=== PATIENT | female | born 1935 | race Caucasian/White ===

== ENCOUNTER 2023-06-05 13:35 | Emergency (ER) | payer MEDICARE, OTHER, SELFPAY ==
[2023-06-05 13:37] VITALS: PULSE 75; RESP 17; TEMP 37; O2SAT 95; BMI 32.9
--- NOTE | 2023-06-05 13:56 | PC.NURSE ---
pt initial bp pt blood pressure attempted x3 on both arms. bp did not take and pt r/f another at this time.
--- NOTE | 2023-06-05 14:06 | PC.PHAR ---
PT STATES SHE TAKES CARE OF HER OWN MEDICATIONS-PT STATES SHE TAKES AMLODIPINE 2.5MG QAM RX FILLED FOR 5MG DAILY04/08/23 90D/S PT STATES ONLY TAKES 2.5MG DAILY BECAUSE 5MG DAILY BRINGS HER BP DOWN TO LOW-PT STATES SHE NO LONGER TAKES PRAVASTATIN 10MG STATES NOT TAKEN FOR MONTHS EXT SHOWS LAST FILLED 01/11/23 90D/S-
[2023-06-05 14:19] VITALS: BP 182/96
--- NOTE | 2023-06-05 14:20 | XR_ITS ---
WS: [id number] EXAMINATION: XR ankle RT min 3V* [id number] ORDER DATE: 06/05/2023 2:21 PM COMPARISON: None HISTORY: pain FINDINGS: There is generalized joint space narrowing. Periarticular osteophytes and generalized degenerative c hanges noted. There is no evidence of acute fracture, dislocation, or joint effusion. Ligamentous and /or intra-articular cartilaginous injury cannot be excluded by radiography. There is an 8 mm plantar calcaneal spur. IMPRESSION: ARTICULAR AND PERIARTICULAR DEGENERATIVE CHANGES OF OSTEOARTHRITIS. IF THERE IS ANY CLINICAL SUSPICIO N OR PROLONGED SYMPTOMS SUGGESTIVE OF LIGAMENTOUS OR CARTILAGINOUS INJURY OTHER IMAGING MAY BE WARRLANNY ALY.
--- NOTE | 2023-06-05 14:20 | USCV_ITS ---
Martita Walton Age: 87 Gender: F : 1935 Exam Date: 06/05/2023 15:12 Ordering Phys: Lainey Collins Technologist: DELIA [place] [facility] [place] Pain HISTORY: Lower extremity pain. History of deep venous thrombosis. PROCEDURES: Venous duplex imaging was performed in only the right lower extremity. The following venous structures were evaluated: common femoral vein, profunda vein, proximal portion of the greater saphenous vein, superficial femoral vein, and the popliteal vein. In addition, the posterior tibial and peroneal trunk were evaluated. Serial compression, augmentation maneuvers, and spectral Doppler flow evaluation were performed. FINDINGS: No evidence of DVT seen in any vessel visualized at this time. CONCLUSIONS No evidence of acute right lower extremity DVT. Dustin Parsons MD (Electronically Signed) Final Date: 05 June 2023 16:43 S
--- NOTE | 2023-06-05 14:42 | ED_ITS ---
HPI - Extremity Problem General: Chief complaint: Extremity Problem,Nontraumatic Stated complaint: right foot/leg pain Time Seen by Provider: 06/05/23 13:38 Source: patient and family Mode of arrival: wheelchair Limitations: no limitations History of Present Illness: Patient is a very nice 87-year-old female presents to ED today along with her significant other for concerns of right ankle pain. She states pain has been bothering her over the past 2 weeks or so. She states pain seems to be worse with weightbearing. She has not noticed any pain to the remainder of the extremity. She does state a few weeks ago she had pain to the right hip but states her hip often times will come out of place has to be readjusted by a chiropractor. She states following this recent manipulation, her hip pain improved. She has not noticed any color or temperature changes to the lower extremity. She has not noticed swelling. She does have a history of DVT and currently on warfarin. Last INR check was last Saturday and was 2.6. Has not had any injury or trauma to the ankle. MD Complaint: joint pain Onset (ago): week(s) Pain Consistency: constant Location: right and lower extremity Radiation: none Relieving factors: immobilization Exacerbating factors: weight bearing and walking Associated symptoms: Reports no associated symptoms; Deny chest pain, fever(s) or rash Context: history of DVT Review of Systems Const: Denies: fever(s), chills, body aches, fatigue or malaise Card: Denies: chest pain Resp: Denies: dyspnea GI: Denies: abdominal pain : Denies: flank pain, dysuria or hematuria Musc: Reports: joint pain (R ankle, R hip); Denies: neck pain, back pain, extremity pain, extremity swelling, joint swelling , joint redness, joint warmth, joint stiffness, limited range of motion, muscle cramps or muscle weakness Skin/Breast: Denies: rash Neuro: Denies: headache(s), numbness in extremities, weakness in extremities or sensory changes Physical Exam Const: COMMON NORMALS: no acute distress, patient oriented x3, no limitations, alert and well nourished GENERAL APPEARANCE: cooperative ORIENTATION/CONSCIOUSNESS: Yes awake, Yes oriented to person, Yes oriented to place and Yes oriented to time HENMT: COMMON NORMALS: normocephalic and atraumatic HEAD & SCALP: normal to inspection, normocephalic and atraumatic Resp: COMMON NORMALS: normal respiratory effort and clear to auscultation bilaterally AUSCULTATION: clear to auscultation bilaterally Cardio: COMMON NORMALS: regular rate and regular rhythm RATE: regular rate RHYTHM: regular rhythm Back/Pelvis: COMMON NORMALS: thoracic and lumbar spine normal to inspection, no thoracic nor lumbar tenderness and thoraco-lumbar ROM normal Extremity: COMMON NORMALS: full ROM, capillary refill normal, no joint enlargement and no calf tenderness NARRATIVE EXTREMITY EXAM: mild bilateral symmetrical non-pitting edema; bilateral LE varicosities GENERAL: Yes normal exam except as noted RIGHT LOWER EXTREMITY: Yes hip joint (full ROM reports no pain at this time) Right hip: Yes palpation (normal), Yes ROM (normal) and Yes neurovascular exam (normal) and Yes foot & digits (TTP anterior/lateral ankle joint line; no swelling noted) Right ankle: Yes palpation (anteriolateral ankle), Yes ROM (normal ROM) and Yes neurovascular exam (normal; DP/PT pulses normal) OTHER: sensation normal; bilateral brisk cap refill; no coolness/pallor or redness/warmth noted Neuro: COMMON NORMALS: patient oriented x3, moves all extremities, no focal motor deficits and no sensory deficits noted SENSORIUM/ORIENTATION: Yes alert, Yes oriented to person, Yes oriented to place and Yes oriented to time Skin: COMMON NORMALS: no rashes or lesions noted GENERAL SKIN EXAM: no rashes or lesions noted TRAUMA: no lacerations or abrasions Course Vital Signs: Vital signs: Vital Signs Temperature 98.6 F 06/05/23 13:37 Pulse Rate 76 06/05/23 14:46 Respiratory Rate 16 06/05/23 14:46 Blood Pressure 162/89 06/05/23 14:46 Pulse Oximetry 92 06/05/23 14:46 Oxygen Delivery Me thod Room Air 06/05/23 14:46 MDM - Extremity (Nontraumatic) Medical Decision Making Patient here for right ankle pain. There is no evidence for joint infection. She has easily palpable DP/PT pulses. Ultrasound today is negative for DVT. On her x-ray she does have significant degenerative changes associated with osteoarthritis. This most likely is the reason for her discomfort. She does have known chronic venous reflux disease. Certainly this can cause some lower extremity swelling/pooling. She admittedly is not very good about wearing her compression stockings. I recommend she start doing this. She can take OTC Aleve and Tylenol for her ankle discomfort. She states she will follow-up with PCP Dr. Vogel for further follow-up. All radiology interpretation(s) finalized by discharge Discharge Plan Discharge Patient Disposition: Home Clinical Impression: Right ankle pain Qualifiers: Chronicity: acute Qualified Code(s): M25.571 - Pain in right ankle and joints of right foot Condition: Stable Prescriptions: No Action multivitamin Tablet 1 tab PO QPM amlodipine 5 mg tablet 2.5 mg PO QAM lisinopril 10 mg tablet 10 mg PO BEDTIME warfarin 2 mg tablet See Rx Instructions .ROUTE .COMPLEX Rx Instructions: TAKE TWO TABLETS (4MG)BY MOUTH EVERY DAY IN THE EVENING EXCEPT SATURDAY TAKE ONE TABLET (2MG) ON SATURDAY Discharge Orders: Discharge ED (Routine); Ordered 06/05/23 Ordered By: Lainey Collins Referrals: Margarito Vogel MD [Primary Care Provider] - Activity Restrictions/Additional Instructions: As we discussed I believe your right ankle pain is secondary to degenerative changes/osteoarthritis. Your ultrasound here was negative for blood clot. As we discussed I would like you to start taking some Aleve and Tylenol daily for your discomfort. You do have known venous reflux disease which can cause some lower leg pain. I want you to start wearing your compression stockings. Please follow-up with your primary care provider next week for reevaluation. Coding Level of Care Code ED [employer] for Stephen Alexander
[2023-06-05 14:46] VITALS: BP 162/89; PULSE 76; RESP 16; O2SAT 92
[2023-06-05 15:56] VITALS: BP 162/89; PULSE 76; RESP 16; O2SAT 92
== END 2023-06-05 16:13 | disposition home or self-care (01) ==
PROVIDERS: Emergency Provider Physician Assistant; PCP Family Medicine
DX: M25.571 Pain in right ankle and joints of right foot (principal); Z79.01 Long term (current) use of anticoagulants; M79.604 Pain in right leg
CPT/HCPCS: 73610; 93971; 99284

== ENCOUNTER 2023-06-10 14:23 | Outpatient (CLI) | payer MEDICARE, OTHER, SELFPAY ==
--- NOTE | 2023-06-10 14:32 | XRR_ITS ---
PROCEDURE INFORMATION: Exam: XR Right Knee Exam date and time: 06/10/2023 2:51 PM Age: 87 years old Clinical indication: Pain; Knee; Right; Additional info: R knee pain TECHNIQUE: Imaging protocol: Radiologic exam of the right knee. Views: 3 views. COMPARISON: CR XR ankle RT min 3V* [id number] 06/05/2023 2:25 PM FINDINGS: Bones/joints: Moderate to severe patellofemoral compartment primary osteoarthritis. Mild medial knee compartment primary osteoarthritis. Soft tissues: Normal. XR/XR knee RT 3V* [id number] IMPRESSION: 1. Moderate to severe patellofemoral compartment primary osteoarthritis. 2. Mild medial knee compartment primary osteoarthritis.
== END 2023-06-10 14:24 | disposition home or self-care (01) ==
LOC: RAD 14:23
PROVIDERS: PCP Family Medicine; Visit Provider Family Medicine
DX: M17.11 Unilateral primary osteoarthritis, right knee (principal)
CPT/HCPCS: 73562

== ENCOUNTER → 2023-09-30 10:39 | Outpatient (BNVA) | payer MEDICARE, OTHER, SELFPAY | PROVIDERS: PCP Family Medicine; Referring Provider Family Medicine; Visit Provider Specialist | DX: R42 Dizziness and giddiness (principal) | CPT/HCPCS: 99204 ==

== ENCOUNTER 2023-11-22 18:27 | Emergency (ER) | payer MEDICARE, OTHER, SELFPAY ==
[2023-11-22 18:42] VITALS: BP 256/98; PULSE 83; RESP 18; TEMP 36.6; O2SAT 97
[2023-11-22 21:38] LABS: Basophils % 0.6 %; Eosinophils # 0.1 10^3/uL (0.0-0.8); Eosinophils % 1.8 %; Hematocrit 42.4 % (36-47); Lymphocytes # 1.7 10^3/uL (0.8-4.8); Lymphocytes % 23.4 %; Mean Corpuscular HGB Conc 32.3 g/dL (30-55); Mean Corpuscular Hemoglobin 31.7 pg (27-33); Mean Corpuscular Volume 98.1 fl (85-98); Mean Platelet Volume 9.2 fL (7.4-10.4); Monocytes # 0.5 10^3/uL (0.2-0.9); Monocytes % 6.6 %; Neutrophils # 4.89 10^3/uL (1.8-7.7); Neutrophils % 67.3 %; Nucleated Red Blood Cells % 0 %; Platelet Count 163 10^3/cmm (157-399); Red Blood Count 4.32 10^6/uL (3.85-5.65); Red Cell Distribution Width 13.3 % (12.1-15.1); White Blood Count 7.26 10^3/uL (3.29-11.43)
[2023-11-22 21:58] LABS: Alanine Aminotransferase 10 U/L (0-33); Albumin Level 3.8 g/dL (3.5-5.2); Alkaline Phosphatase 97 U/L (35-105); Aspartate Amino Transferase 15 U/L (0-32); Blood Urea Nitrogen 19 mg/dL (8-23); Calcium 9.8 mg/dL (8.5-10.5); Carbon Dioxide 25 mmol/L (22-29); Chloride 108 mmol/L (98-107); Creatinine Clr Calc Pharmacy 32.2689; Glucose 117 mg/dL (65-115); Osmolality Calculated 299 mOsm/kg (285-295); Sodium 143 mmol/L (136-145); Total Bilirubin 0.3 mg/dL (0.15-1.2); Total Protein 6.8 g/dL (6.6-8.7)
[2023-11-22 22:42] VITALS: BP 221/85; PULSE 66; O2SAT 94
--- NOTE | 2023-11-22 22:47 | ED_ITS ---
Documented by User: JEANINE Bradley 11/23/23 00:37 HPI - Female Genitourinary 2 General: Chief complaint: Urogenital-Female Stated complaint: incontinence believes uti and pain Time Seen by Provider: 11/22/23 22:30 Source: patient Mode of arrival: ambulatory Limitations: no limitations History of Present Illness: Patient is an 88-year-old female presents to the emergency department complaining of urinary incontinence onset 2 days. Patient also notes associated burning, increased frequency, and some suprapubic pain. She denies any back pain or blood in her urine. She has never had issues with incontinence, as she states when she stands up urine gushes down her leg. She has history of UTIs and states that her other symptoms feel similar. She denies any fever, breathing difficulties, chest pain, or any other symptoms. Patient's blood pressure notably elevated in triage as she states she has not taken her blood pressure medication today. For this, she denies any headaches, visual changes, or other concerning symptoms. Associated symptoms: Deny abdominal pain, headache(s) or nausea Review of Systems 2 General: Reports: 10 or more systems reviewed and unremarkable except in HPI and below Const: Denies: fever(s), chills or fatigue Eyes: Denies: change in vision ENMT: Denies: throat pain, ear or mastoid pain or nasal discharge Card: Denies: chest pain, palpitations, swelling of feet/ankles or lightheadedness Resp: Denies: dyspnea, productive cough or wheezing GI: Denies: abdominal pain, nausea, vomiting, diarrhea or constipation : Reports: dysuria, urinary frequency, urinary incontinence and pelvic pain; Denies: flank pain or difficulty voiding Musc: Denies: neck pain, back pain or joint pain Skin/Breast: Denies: rash Neuro: Denies: headache(s), numbness in extremities or weakness in extremities Physical Exam 2 Const: COMMON NORMALS: no acute distress, patient oriented x3 and no limitations GENERAL APPEARANCE: cooperative, comfortable and well developed ORIENTATION/CONSCIOUSNESS: Yes awake, Yes oriented to person, Yes oriented to place and Yes oriented to time HENMT: COMMON NORMALS: normocephalic, atraumatic and hearing grossly normal bilaterally HEAD & SCALP: normocephalic and atraumatic Eye: COMMON NORMALS: Equal, round and reactive pupils present, EOMs intact bilaterally and conjunctivae normal CONJUNCTIVA: Yes conjunctivae normal P UPIL: Yes Equal, round and reactive pupils present Neck/C-Spine: COMMON NORMALS: full ROM, supple and no JVD Resp: COMMON NORMALS: normal respiratory effort, No retractions, No use of accessory muscles and clear to auscultation bilaterally AUSCULTATION: clear to auscultation bilaterally Cardio: COMMON NORMALS: no JVD, regular rate, regular rhythm, No clicks present (Cardio), No murmurs present (Cardio) and No rub (Cardio) RATE: r egular rate RHYTHM: regular rhythm GI: COMMON NORMALS: Normal to inspection, nondistended, normoactive bowel sounds present, Soft to palpation and non-tender AUSCULTATION: Yes normoactive bowel sounds PALPATION: Yes Soft to palpation RECTAL EXAM: d eferred : COMMON NORMALS: Yes no CVA tenderness BLADDER/KIDNEY EXAM: Yes no CVA tenderness Back/Pelvis: COMMON NORMALS: no CVA tenderness, thoracic and lumbar spine normal to inspection, no thoracic nor lumbar tenderness and thoraco-lumbar ROM normal Extremity: COMMON NORMALS: normal to inspection, full ROM and capillary refill normal Neuro: COMMON NORMALS: patient oriented x3, moves all extremities, no focal motor deficits and no sensory deficits noted SENSORIUM/ORIENTATION: Yes oriented to person, Yes oriented to place and Yes oriented to time Psych: COMMON NORMALS: mental status grossly normal and Normal thought process present THOUGHT PROCESS: Normal thought process present Skin: COMMON NORMALS: no rashes or lesions noted GENERAL SKIN EXAM: no rashes or lesions noted Course 2 Vital Signs: Vital signs: Vital Signs Temperature 97.9 F 11/22/23 18:42 Pulse Rate 77 11/23/23 01:08 Respiratory Rate 18 11/22/23 23:53 Blood Pressure 126/63 11/23/23 01:08 Pulse Oximetry 98 11/23/23 01:08 Oxygen Delivery Me thod Room Air 11/22/23 22:42 MDM - Female Medical Decision Making Patient was seen and evaluated in the emergency department today due to 2 days of urinary tract infection symptoms. Patient's primary complaint is the incontinence as she states that every time she stands up she leaks urine. On arrival patient's blood pressure was significantly elevated, as she states she had not taken her prescribed lisinopril yet. I treated this initially with IV hydralazine as well as clonidine, and prior to discharge patient's blood pressure was 106/56. On examination patient was exhibiting some moderate tenderness to palpation of the pelvic region. UA showed evidence of acute urinary tract infection. Due to the continuation of her pain out of proportion, I ordered a CT that showed cystitis and right ureteritis with mild hydronephrosis. There were also other nonspecific findings I instructed the patient to follow-up with her primary care to discuss. I will treat the patient with a dose of Macrobid prior to discharge, and send a prescription to her pharmacy. Instructed her to drink plenty of fluids and return precautions are given. Patient agrees with discharge home. Lab Data I reviewed the patient's lab results. 11/22/23 21:11/22/23: Radiology Impressions Abdomen/Pelvis CT 11/22/23 23:19 IMPRESSION: 1. Cystitis and right ureteritis with mild right hydronephrosis. No urinary tract calculi. 2. There is irregular soft tissue thickening/enhancement involving the urethra, which is concerning for malignancy. COMMENTS: Consistent with the [employer]'s Incidental Findings Committee white paper (J Am Lori Radiol 2018): Any incidental renal lesion less than 1 cm or classified as too small to characterize, or any incidental cystic renal lesion characterized as simple-appearing, is likely benign. No follow-up imaging is recommended for these lesions per consensus recommendations based on imaging criteria. Laboratory Results WBC 7.26 10^3/uL (3.29-11.43) 11/22/23: RBC 4.32 10^6/uL (3.85-5.65) 11/22/23: Hgb 13.70 g/dL (11.27-16.99) 11/22/23: Hct 42.4 % (36-47) 11/22/23: MCV 98.1 fl (85-98) H 11/22/23: MCH 31.7 pg (27-33) 11/22/23: MCHC 32.3 g/dL (30-55) 11/22/23: RDW 13.3 % (12.1-15.1) 11/22/23: Plt Count 163 10^3/cmm (157-399) 11/22/23: MPV 9.2 fL (7.4-10.4) 11/22/23: Neut % (Auto) 67.3 % 11/22/23: Lymph % (Auto) 23.4 % 11/22/23: Mcleod % (Auto) 6.6 % 11/22/23: Eos % (Auto) 1.8 % 11/22/23: Baso % (Auto) 0.6 % 11/22/23: Neut # (Auto) 4.89 10^3/uL (1.8-7.7) 11/22/23: Lymph # (Auto) 1.7 10^3/uL (0.8-4.8) 11/22/23: Mcleod # (Auto) 0.5 10^3/uL (0.2-0.9) 11/22/23: Eos # (Auto) 0.1 10^3/uL (0.0-0.8) 11/22/23: Baso # (Auto) 0.0 10^3/uL (0.0-0.1) 11/22/23: Nucleated RBC % (auto) 0 % 11/22/23 Nucleated RBCs # 0.0 /100WBC 11/22/23: Sodium 143 mmol/L (136-145) 11/22/23: Potassium 4.0 mmol/L (3.5-5.1) 11/22/23: Chloride 108 mmol/L (98-107) H 11/22/23: Carbon Dioxide 25 mmol/L (22-29) 11/22/23: Anion Gap 14.0 (5-19) 11/22/23: BUN 19 mg/dL (8-23) 11/22/23: Creatinine 1.3 mg/dL (0.5-0.9) H 11/22/23 21: GFR Calculation Not Reportable 11/22/23: Glucose 117 mg/dL (65-115) H 11/22/23: Calculated Osmolality 299 mOsm/kg (285-295) H 11/22/23:29 Calcium 9.8 mg/dL (8.5-10.5) 11/22/23 21: Total Bilirubin 0.3 mg/dL (0.15-1.2) 11/22/23 21: AST 15 U/L (0-32) 11/22/23 21: ALT 10 U/L (0-33) 11/22/23 21: Alkaline Phosphatase 97 U/L (35-105) 11/22/23 21: Total Protein 6.8 g/dL (6.6-8.7) 11/22/23 21: Albumin 3.8 g/dL (3.5-5.2) 11/22/23: Globulin 3.0 g/dL (1.3-4.6) 11/22/23: Urine Color Yellow (Yellow) 11/22/23 22:34 Urine Appearance Hazy (CLEAR) A 11/22/23 22:34 Urine pH 6 (5-7) 11/22/23 22:34 Ur Specific [place] 1.015 (1.005-1.030) 11/22/23 22:34 Urine Protein 1+ (Negative) H 11/22/23 22:34 Urine Glucose (UA) Norm (Normal) 11/22/23 22:34 Urine Ketones Negative (Negative) 11/22/23 22:34 Urine Blood 2+ (Negative) H 11/22/23 22:34 Urine Nitrate Positive (Negative) H 11/22/23 22:34 Urine Bilirubin Neg (Negative) 11/22/23 22:34 Urine Urobilinogen Neg mg/dL (Negative) 11/22/23 22:34 Ur Leukocyte Esterase 2+ (Negative) H 11/22/23 22:34 Urine RBC 5-10 /hpf (0-2) H 11/22/23 22:34 Urine WBC 80-100 /hpf (0-5) H 11/22/23 22:34 Ur Squamous Epith Cells 0-4 /hpf (0-5) H 11/22/23 22:34 Amorphous Sediment Not Reportable 11/22/23 22:34 Urine Bacteria 3+ /hpf (NONE) H 11/22/23 22:34 All radiology interpretation(s) finalized by discharge Discharge Plan Discharge Patient Disposition: Home Clinical Impression: Urinary tract infection Condition: Stable Prescriptions: New Macrobid 100 mg capsule 100 mg PO BID 7 Days Qty: 14 0RF Rx Instructions: must administer with a meal/food No Action multivitamin Tablet 1 tab PO QPM amlodipine 5 mg tablet 2.5 mg PO QAM lisinopril 10 mg tablet 10 mg PO BEDTIME warfarin 2 mg tablet See Rx Instructions .ROUTE .COMPLEX Rx Instructions: TAKE TWO TABLETS (4MG)BY MOUTH EVERY DAY IN THE EVENING EXCEPT SATURDAY TAKE ONE TABLET (2MG) ON SATURDAY Discharge Orders: Discharge ED (Routine); Ordered 11/23/23 Ordered By: Nasir Barton Referrals: Margarito Vogel MD [Primary Care Provider] - Discharge Diet: Usual diet Discharge Activity: Increase activity as tolerated Patient Instructions: Urinary Tract Infection in Women (ED) Activity Restrictions/Additional Instructions: Drink plenty of fluids. Macrobid as prescribed. Follow-up with your primary care provider to discuss ED visit and for reevaluation. Return with any new or concerning symptoms. Coding Level of Care Code ED Core Driller Helper for Chg Fwd Documented by User: Marquise Del Angel DO 11/23/23 06:25 HPI - Female Genitourinary 2 General: Chief complaint: Urogenital-Female Stated complaint: incontinence believes uti and pain Time Seen by Provider: 11/22/23 22:30 Course 2 Vital Signs: Vital signs: Vital Signs Temperature 97.9 F 11/22/23 18:42 Pulse Rate 77 11/23/23 01:08 Respiratory Rate 18 11/22/23 23:53 Blood Pressure 126/63 11/23/23 01:08 Pulse Oximetry 98 11/23/23 01:08 Oxygen Delivery Me thod Room Air 11/22/23 22:42 MDM - Female Medical Decision Making Patient was seen and evaluated in the emergency department today due to 2 days of urinary tract infection symptoms. Patient's primary complaint is the incontinence as she states that every time she stands up she leaks urine. On arrival patient's blood pressure was significantly elevated, as she states she had not taken her prescribed lisinopril yet. I treated this initially with IV hydralazine as well as clonidine, and prior to discharge patient's blood pressure was 106/56. On examination patient was exhibiting some moderate tenderness to palpation of the pelvic region. UA showed evidence of acute urinary tract infection. Due to the continuation of her pain out of proportion, I ordered a CT that showed cystitis and right ureteritis with mild hydronephrosis. There were also other nonspecific findings I instructed the patient to follow-up with her primary care to discuss. I will treat the patient with a dose of Macrobid prior to discharge, and send a prescription to her pharmacy. Instructed her to drink plenty of fluids and return precautions are given. Patient agrees with discharge home. Chart reviewed Lab Data 11/22/23 21:11/22/23: Radiology Impressions Abdomen/Pelvis CT 11/22/23 23:19 IMPRESSION: 1. Cystitis and right ureteritis with mild right hydronephrosis. No urinary tract calculi. 2. There is irregular soft tissue thickening/enhancement involving the urethra, which is concerning for malignancy. COMMENTS: Consistent with the [employer]'s Incidental Findings Committee white paper (J Am Lori Radiol 2018): Any incidental renal lesion less than 1 cm or classified as too small to characterize, or any incidental cystic renal lesion characterized as simple-appearing, is likely benign. No follow-up imaging is recommended for these lesions per consensus recommendations based on imaging criteria. Laboratory Results WBC 7.26 10^3/uL (3.29-11.43) 11/22/23: RBC 4.32 10^6/uL (3.85-5.65) 11/22/23: Hgb 13.70 g/dL (11.27-16.99) 11/22/23: Hct 42.4 % (36-47) 11/22/23: MCV 98.1 fl (85-98) H 11/22/23: MCH 31.7 pg (27-33) 11/22/23: MCHC 32.3 g/dL (30-55) 11/22/23: RDW 13.3 % (12.1-15.1) 11/22/23: Plt Count 163 10^3/cmm (157-399) 11/22/23: MPV 9.2 fL (7.4-10.4) 11/22/23: Neut % (Auto) 67.3 % 11/22/23: Lymph % (Auto) 23.4 % 11/22/23: Mcleod % (Auto) 6.6 % 11/22/23: Eos % (Auto) 1.8 % 11/22/23: Baso % (Auto) 0.6 % 11/22/23: Neut # (Auto) 4.89 10^3/uL (1.8-7.7) 11/22/23: Lymph # (Auto) 1.7 10^3/uL (0.8-4.8) 11/22/23: Mcleod # (Auto) 0.5 10^3/uL (0.2-0.9) 11/22/23: Eos # (Auto) 0.1 10^3/uL (0.0-0.8) 11/22/23: Baso # (Auto) 0.0 10^3/uL (0.0-0.1) 11/22/23: Nucleated RBC % (auto) 0 % 11/22/23 Nucleated RBCs # 0.0 /100WBC 11/22/23: Sodium 143 mmol/L (136-145) 11/22/23: Potassium 4.0 mmol/L (3.5-5.1) 11/22/23: Chloride 108 mmol/L (98-107) H 11/22/23: Carbon Dioxide 25 mmol/L (22-29) 11/22/23: Anion Gap 14.0 (5-19) 11/22/23: BUN 19 mg/dL (8-23) 11/22/23: Creatinine 1.3 mg/dL (0.5-0.9) H 11/22/23: GFR Calculation Not Reportable 11/22/23: Glucose 117 mg/dL (65-115) H 11/22/23: Calculated Osmolality 299 mOsm/kg (285-295) H 11/22/23: Calcium 9.8 mg/dL (8.5-10.5) 11/22/23 21: Total Bilirubin 0.3 mg/dL (0.15-1.2) 11/22/23 21: AST 15 U/L (0-32) 11/22/23 21: ALT 10 U/L (0-33) 11/22/23 21: Alkaline Phosphatase 97 U/L (35-105) 11/22/23 21: Total Protein 6.8 g/dL (6.6-8.7) 11/22/23: Albumin 3.8 g/dL (3.5-5.2) 11/22/23: Globulin 3.0 g/dL (1.3-4.6) 11/22/23: Urine Color Yellow (Yellow) 11/22/23 22:34 Urine Appearance Hazy (CLEAR) A 11/22/23 22: Urine pH 6 (5-7) 11/22/23 22:34 Ur Specific [place] 1.015 (1.005-1.030) 11/22/23 22:34 Urine Protein 1+ (Negative) H 11/22/23 22:34 Urine Glucose (UA) Norm (Normal) 11/22/23 22:34 Urine Ketones Negative (Negative) 11/22/23 22:34 Urine Blood 2+ (Negative) H 11/22/23 22:34 Urine Nitrate Positive (Negative) H 11/22/23 22:34 Urine Bilirubin Neg (Negative) 11/22/23 22:34 Urine Urobilinogen Neg mg/dL (Negative) 11/22/23 22:34 Ur Leukocyte Esterase 2+ (Negative) H 11/22/23 22:34 Urine RBC 5-10 /hpf (0-2) H 11/22/23 22:34 Urine WBC 80-100 /hpf (0-5) H 11/22/23 22:34 Ur Squamous Epith Cells 0-4 /hpf (0-5) H 11/22/23 22:34 Amorphous Sediment Not Reportable 11/22/23 22:34 Urine Bacteria 3+ /hpf (NONE) H 11/22/23 22:34 Discharge Plan Discharge Patient Disposition: Home Clinical Impression: Urinary tract infection Condition: Stable Prescriptions: New Macrobid 100 mg capsule 100 mg PO BID 7 Days Qty: 14 0RF Rx Instructions: must administer with a meal/food No Action multivitamin Tablet 1 tab PO QPM amlodipine 5 mg tablet 2.5 mg PO QAM lisinopril 10 mg tablet 10 mg PO BEDTIME warfarin 2 mg tablet See Rx Instructions .ROUTE .COMPLEX Rx Instructions: TAKE TWO TABLETS (4MG)BY MOUTH EVERY DAY IN THE EVENING EXCEPT SATURDAY TAKE ONE TABLET (2MG) ON SATURDAY Discharge Orders: Discharge ED (Routine); Ordered 11/23/23 Ordered By: Nasir Barton Referrals: Margarito Vogel MD [Primary Care Provider] - Discharge Diet: Usual diet Discharge Activity: Increase activity as tolerated Patient Instructions: Urinary Tract Infection in Women (ED) Activity Restrictions/Additional Instructions: Drink plenty of fluids. Macrobid as prescribed. Follow-up with your primary care provider to discuss ED visit and for reevaluation. Return with any new or concerning symptoms. Coding Level of Care Code ED Core Driller Helper for Stephen Alexander
[2023-11-22] MEDS: hyDRALAzine 20 mg/mL INJ 1 mL IVP (22:55)
[2023-11-22 22:56] VITALS: BP 221/85
[2023-11-22] MEDS: cloNIDine 0.1 mg Tablet 0.100000000000000006 MG PO (22:56)
[2023-11-22 23:06] LABS: Add Urine Microscopic? YES
[2023-11-22 23:07] LABS: Add Urine Culture? Yes; Bacteria Urine 3+ /hpf; Bilirubin Urine Neg (Negative); Blood Urine 2+ (Negative); Glucose Urine UA Norm (Normal); Ketones Urine Negative (Negative); Leukocyte Esterase Urine 2+ (Negative); Nitrate Urine Positive (Negative); Protein Urine 1+ (Negative); Specific Gravity, Urine 1.015 (1.005-1.030); Squamous Epithelial Cell Urine 0-4 /hpf (0-5); Urine Appearance Hazy (CLEAR); Urine Color Yellow (Yellow); Urobilinogen Urine Neg (Negative); WBC Urine 80-100 /hpf (0-5); pH Urine 6 (5-7)
--- NOTE | 2023-11-22 23:19 | CTR_ITS ---
PROCEDURE INFORMATION: Exam: CT Abdomen And Pelvis With Contrast Exam date and time: 11/22/2023 11:32 PM Age: 88 years old Clinical indication: Abdominal pain; Localized; Lower; Prior surgery; Surgery date: 6+ months; Surgery type: Gb. Appy. Hysterectomy. Patient HX: Severe pelvic pain. Positive for UTI. ; Additional info: Suprapubic pain/worsening TECHNIQUE: Imaging protocol: Computed tomography of the abdomen and pelvis with contrast. Radiation optimization: All CT scans at this facility use at least one of these dose optimization techniques: automated exposure control; mA and/or kV adjustment per patient size (includes targeted exams where dose is matched to clinical indication); or iterative reconstruction. Contrast material: OMNI 350; Contrast volume: 75 ml; Contrast route: INTRAVENOUS (IV); COMPARISON: No relevant prior studies available. RADIATION DOSE METRICS: Total DLP (mGy-cm): 795.73 FINDINGS: Diaphragm: Small hiatal hernia. Liver: Liver is unremarkable. Gallbladder and bile ducts: Cholecystectomy. Pancreas: Pancreatic atrophy. No main duct dilation. Spleen: Spleen is unremarkable. Adrenal glands: No nodules. Kidneys and ureters: Subcentimeter too small to characterize renal hypodensities. There is urothelial thickening within the mid-distal right ureter. There is mild right hydronephrosis. No urinary tract calculi. Stomach and bowel: Scattered colonic diverticula without CT findings of acute diverticulitis. No bowel obstruction. Appendix: No evidence of appendicitis. Intraperitoneal space: Unremarkable. No free air. No significant fluid collection. Vasculature: Mild atherosclerosis. No aortic aneurysm. Lymph nodes: Subcentimeter retroperitoneal and iliac chain nodes, nonspecific. Urinary bladder: There is circumferential bladder wall thickening with mucosal hyperemia and perivesicular stranding. There is irregular soft tissue thickening/enhancement involving the urethra. Reproductive: Patient is status post hysterectomy. Fluid-filled structure posterior to the bladder, presumably fluid within the vaginal cuff. Bones/joints: No acute fracture. Degenerative changes. Soft tissues: Nodular left gluteal subcutaneous density, indeterminate, may represent sebaceous or epidermal inclusion cyst. CT/CT abdomen pelvis w con* [id number] IMPRESSION: 1. Cystitis and right ureteritis with mild right hydronephrosis. No urinary tract calculi. 2. There is irregular soft tissue thickening/enhancement involving the urethra, which is concerning for malignancy. COMMENTS: Consistent with the [place] [employer]'s Incidental Findings Committee white paper (J Am Loir Radiol 2018): Any incidental renal lesion less than 1 cm or classified as too small to characterize, or any incidental cystic renal lesion characterized as simple-appearing, is likely benign. No follow-up imaging is recommended for these lesions per consensus recommendations based on imaging criteria.
[2023-11-22] MEDS: iohexol 350 mg/mL 500 mL Btl (per mL) IV (23:33)
[2023-11-22 23:44] VITALS: BP 175/81; PULSE 94; O2SAT 99
[2023-11-22 23:53] VITALS: RESP 18
[2023-11-22] MEDS: morphine 4 mg/mL SDV 1 mL IVP (23:53)
[2023-11-23 00:06] VITALS: BP 106/56; PULSE 79; O2SAT 97
[2023-11-23] MEDS: nitrofurantoin SR (BID) 100 mg Capsule PO (00:49)
[2023-11-23 01:07] VITALS: BP 126/63; PULSE 77; O2SAT 98
[2023-11-23 01:08] VITALS: BP 126/63; PULSE 77; O2SAT 98
== END 2023-11-23 01:10 | disposition home or self-care (01) ==
PROVIDERS: Internal Medicine; Emergency Provider Physician Assistant; PCP Family Medicine
DX: N39.0 Urinary tract infection, site not specified (principal); Z79.01 Long term (current) use of anticoagulants
CPT/HCPCS: 36415; 74177; 80053; 81001; 85025; 87077; 87086; 87186; 96374; 96375; 99285; J0360; J2270; Q9967